=== PATIENT | male | born 1940 | race Caucasian/White ===

== ENCOUNTER 2016-11-26 06:55 | Emergency (ER) | payer OTHER ==
[~2016-11-26] VITALS: Ht 177.8 cm; Wt 94.9 kg
[~2016-11-26 06:55] MED LIST: AMMONIUM LACTA140 GM TP; ANTACID MAXIM1000 MG PO; ASPIR-LOW81 MG PO; ASPIRIN81 M1 PO; Aspirin E.C. PO; CALCIUM500 MG PO; CHLORTHALIDONE25 MG PO; COVERA HS 240240 MG PO; DUONEB 2.5-0.5 M3 ML PEP; Echinacea PO; FISH OIL 1,0001 EAC7 PO; FISH OIL SOFTG1 EACH PO; HYGROTON25 MG PO; K-TAB10 MEQ PO; LANOXIN,DIGI0.125 MG PO; LANOXIN125 MCG PO; LASIX20 MG PO; LIPITOR40 MG PO; LISINOPRIL; Lasix PO; MICRO-K,K-DUR,10 ME1 PO; MICRO-K10 ME2 PO; NEURONTIN300 MG PO; NEURONTIN600 M1 PO; NEURONTIN600 MG PO; PRADAXA75 MG PO; PROSTATE SR SO1 EACH PO; Pradaxa PO; ROCEPHIN2 GM/50 ML IV; TAMSULOSIN HCL0.4 MG PO; TENORMIN50 MG PO; ULTRAM50 MG PO; VITAMIN B12-FO1 EACH PO; VITAMIN D5000 UNI1 PO; Vitamin B-12 IM; Vitamin D PO; ZESTRIL40 M1 PO; ZESTRIL40 MG PO; ZOCOR20 MG PO
[2016-11-26] MEDS ORDERED: CLEOCIN300 MG PO (07:40)
[2016-11-26] MEDS ORDERED: PREDNISONE20 MG PO (07:40)
[2016-11-26 08:05] VITALS: BP 119/71
== END 2016-11-26 08:06 | disposition home or self-care (01) ==
LOC: EME 06:55
DX: T78.40XA Allergy, unspecified, initial encounter (principal); E78.5 Hyperlipidemia, unspecified; I10 Essential (primary) hypertension; Z86.73 Personal history of transient ischemic attack (TIA), and cerebral infarction without residual deficits; Z87.891 Personal history of nicotine dependence
CPT/HCPCS: 99281; 99285; J7512

== ENCOUNTER → 2018-03-13 | Outpatient (CLI) | payer OTHER ==
[~2018-03-13] MED LIST changes: +CLEOCIN300 MG PO; +PREDNISONE20 MG PO
== END | disposition home or self-care (01) ==
DX: M16.11 Unilateral primary osteoarthritis, right hip (principal); R26.2 Difficulty in walking, not elsewhere classified; M25.551 Pain in right hip; M25.651 Stiffness of right hip, not elsewhere classified; Z74.1 Need for assistance with personal care
CPT/HCPCS: 97161 GP; 97165 GO; 97530 GP; 97535 GO; G8978 GP; G8979 GP; G8980 GP; G8987 GO; G8988 GO; G8989 GO

== ENCOUNTER 2018-04-08 22:01 | Inpatient (IN) | payer OTHER ==
[~2018-04-08] VITALS: Ht 175.3 cm; Wt 90.8 kg
[~2018-04-08 22:01] MED LIST changes: +POTASSIUM CHLO10 ME3 PO; +TYLENOL REGULA325 MG PO
[2018-04-09 07:06] VITALS: BP 121/57
[2018-04-09 11:17] LABS: HEMATOCRIT 37.2 % (38.0-50.0); HEMOGLOBIN 12.6 G/DL (12.5-16.6); MCH 32.5 PG (29.0-34.0); MCHC 33.9 G/DL (30.0-36.0); MCV 95.9 FL (86-99); PLATELET COUNT 225 K/uL (156-360); RBC DIS.WIDTH-SD 45.4 % (39-53); RED BLOOD COUNT 3.88 M/uL (4.00-5.50); WHITE BLOOD COUNT 13.2 K/uL (4.1-10.2)
[2018-04-09 12:30] VITALS: BP 134/59
[2018-04-09 15:45] VITALS: BP 127/57
[2018-04-09 20:04] VITALS: BP 122/61
[2018-04-10 00:05] VITALS: BP 107/53
[2018-04-10 04:03] VITALS: BP 105/63
[2018-04-10 05:29] LABS: HEMOGLOBIN 11.3 G/DL (12.5-16.6); MCV 95.5 FL (86-99)
[2018-04-10 05:55] LABS: CHLORIDE 103 MEQ/L (99-109); CREATININE 1.6 MG/DL (0.6-1.3); GFR ESTIMATE (CALCULATED) 45 mL/min/ (58.99-99999); GLUCOSE 149 mg/dL (70-99); POTASSIUM 4.3 MEQ/L (3.7-5.4); SODIUM 137 MEQ/L (136-147); UREA NITROGEN (BUN) 25 mg/dL (9-23)
[2018-04-10 08:06] VITALS: BP 127/74
[2018-04-10] MEDS ORDERED: DOCUSATE SODIU100 MG PO (08:30)
[2018-04-10] MEDS ORDERED: OXYCODONE HCL5 MG PO (08:31)
[2018-04-10] MEDS ORDERED: CELECOXIB200 MG PO (08:31)
[2018-04-10] MEDS ORDERED: LOVENOX40 MG/0.4 SC (08:31)
[2018-04-10 11:40] VITALS: BP 118/60
== END 2018-04-10 14:05 | disposition home health service (06) | DRG 470 ==
LOC: ENRESERV 22:01 → 2SOUTH 04-09 05:45 → 3WEST 04-09 12:12 → 2SOUTH 04-09 14:47 → 3WEST 04-10 14:05
PROVIDERS: Orthopaedic Surgery
PROC: 0SR90JA Replacement of Right Hip Joint with Synthetic Substitute, Uncemented, Open Approach (ICD-10-PCS; principal; 2018-04-09)
DX: M16.11 Unilateral primary osteoarthritis, right hip (principal); I12.9 Hypertensive chronic kidney disease with stage 1 through stage 4 chronic kidney disease, or unspecified chronic kidney disease; N18.9 Chronic kidney disease, unspecified; I48.91 Unspecified atrial fibrillation; E78.00 Pure hypercholesterolemia, unspecified; G62.9 Polyneuropathy, unspecified; N40.0 Benign prostatic hyperplasia without lower urinary tract symptoms; Z90.5 Acquired absence of kidney; Z96.642 Presence of left artificial hip joint; Z79.82 Long term (current) use of aspirin; Z88.0 Allergy status to penicillin; Z88.2 Allergy status to sulfonamides
CPT/HCPCS: 73501; 73502; 76000; 80048; 80162; 85014; 85018; 85027; 97530 GP; C1713; C1776; J0690; J1100; J1170; J1200; J1650; J2250; J3010; J7050